=== PATIENT | male | born 1995 | race Caucasian/White ===

== ENCOUNTER 2018-07-17 07:32 | Outpatient (CLI) | payer BC, SELFPAY ==
[2018-07-17 08:01] LABS: Abs Immature Grans 0.01 k/cumm (0.0-0.09); Absolute Basophil Count 0.02 k/cumm (0.0-0.2); Absolute Eosinophil Count 0.14 k/cumm (0.0-0.7); Absolute Lymphocyte Count 3.08 k/cumm (1.2-3.4); Absolute Monocyte Count 0.45 k/cumm (0.11-0.7); Absolute Neutrophil Count 2.63 k/cumm (1.2-6.7); Basophils % 0.3; Eosinophils % 2.2; HGB 15.9 g/dL (13.5-17.5); Immature Grans % 0.2; Lymphocytes % 48.7; Mean Corp. HGB Concentration 35.3 g/dL (32.0-36.0); Mean Corpuscular Hemoglobin 31.3 pg (27.0-33.0); Mean Corpuscular Volume 88.6 fL (80-95); Mean Platelet Volume 9.3 fL (8.0-11.0); Monocytes % 7.1; Neutrophils % 41.5; Platelet Count 240 x1000/uL (130-400); RBC 5.08 m/cumm (4.50-6.00); RBC Distribution Width 11.7 % (11.8-14.1); White Blood Cell Count 6.33 k/cumm (4.4-10.8)
[2018-07-17 08:46] LABS: Bilirubin Negative (Negative); Blood Negative (Negative); Clarity Clear; Glucose Negative (Negative); Ketones Negative (Negative); Leukocyte Esterase Negative (Negative); Nitrite Negative (Negative); Specific Gravity 1.025 (1.005-1.025); Urobilinogen 0.2 EU/dL (Up TO 0.2)
[2018-07-17 10:46] LABS: ALT 21 U/L (12-78); AST 24 U/L (15-37); Alkaline Phosphatase 76 U/L (46-116); Anion Gap 6.5 mmol/L (3-11); BUN 14 mg/dL (7-18); Bilirubin, Total 0.8 mg/dL (0.2-1.0); CO2 33.5 mmol/L (21.0-32.0); CREATININE 1.11 mg/dL (0.70-1.30); Calcium 9.3 mg/dL (8.5-10.1); Chloride 102 mmol/L (98-107); Cholesterol 194 mg/dL (50-200); Glucose 89 mg/dL (70-100); HDL Cholesterol 82 mg/dL (40-60); LDL CHOLESTEROL 103 mg/dL (<100); Potassium 4.1 mmol/L (3.5-5.1); Sodium 142 mmol/L (136-145); TSH (W/Ref FT4) 2.03 uIU/mL (0.358-3.74); Total Protein 7.7 g/dL (6.4-8.2); Triglyceride 36 mg/dL (30-150)
== END 2018-07-17 07:52 ==
PROVIDERS: PCP Family Medicine; Visit Provider Family Medicine
DX: Z00.00 Encounter for general adult medical examination without abnormal findings (principal); R11.0 Nausea; R39.11 Hesitancy of micturition; Z83.42 Family history of familial hypercholesterolemia
CPT/HCPCS: 36415; 80053; 80061; 83721; 81003; 84443; 85025

== ENCOUNTER 2019-08-08 03:38 | Emergency (ER) | payer BC, SELFPAY ==
[2019-08-08 03:44] VITALS: BP 130/84; PULSE 111; RESP 15; TEMP 36.6; O2SAT 100
--- NOTE | 2019-08-08 03:52 | ED.GENADUL_ITS ---
Discharge Plan Disposition Patient Disposition: HOME Condition: Stable Discharge Details Chief Complaint: Nausea/Vomit/Diar Clinical Impression: Nausea & vomiting Primary Care Provider: Geraldo Carrera ED Provider: Stiven Turcios Home Meds and New Rx's Prescriptions: New ondansetron 4 mg tablet,disintegrating 4 mg PO Q8H PRN (Reason: nausea and vomiting) Qty: 30 RF: 0 Discharge Instructions Instructions: Acute Nausea and Vomiting (ED) Additional Instructions: drink small amounts of fluids frequently to stay hydrated if still symptomatic Saturday follow up with your primary care provider if persistent vomit despite zofran, severe abdominal pain return to the emergency department Medical Decision Making 23 yo male who denies history of any significant medical problems, alcohol use or drug use comes in with complaints of n/v starting around 10pm last night. He denies any known fevers or recent travel. He has not had any severe or sharp abdominal pain but has had intermittent abdominal cramping sensations. He states he feels like he passed out during one episode of vomit that he had. He arrives HD stable with sinus tachycardia rate in the 110's on arrival, afebirle with stable BP. He is having intermittent periods of dry heaving on exam. He has a soft nontender abdomen. I suspect he has a gastroenteritis vs food illness. Given lack of abdominal tenderness do not suspect surgical pathology such as sbo, appendicitis or cholecystitis and do not feel ct imaging indicated. Will treat with ivf and zofran and evaluate for pancreatitis, hepatitis and electrolyte abnormalities. labs show no significant abnormalities and he feels better after compazine and zofrna and is tolerating PO, HR now in the 80's and no abdominal pain and no tenderness on exam. Suspect gastroenteritis vs food illness. ADvised to drink fluids and bland diet today and if not better by Saturday to see pcp and return precautions given Differential Diagnosis Differential Diagnosis: gastroenteritis, food illness, pancreatitis Lab Data Lab results reviewed: Yes I reviewed the patient's lab results. HPI General Mode of arrival: ambulatory . Date/Time Provider Initiated Documentation: 08/08/19 03:39 . Limitations to Documentation: no limitations . Information obtained by: patient . History of Present Illness 23 year old M presents to the emergency department with the chief complaint of nausea and vomit, described as moderate, Patient started experiencing this hour(s) (3) and it has been intermittent. No relieving factors improve symptom(s), No exacerbating factors reported . Patient did receive the following treatments prior to arrival, none Related Data Home Medications Medication Instructions Recorded Confirmed ondansetron 4 mg PO Q8H PRN #30 tab 08/08/19 Previous Rx's Medication Instructions Recorded ondansetron 4 mg PO Q8H PRN #30 tab 08/08/19 Allergies Allergy/AdvReac Type Severity Reaction Status Date / Time No Known Allergies Allergy Unverified 07/14/18 09:19 General Stated Complaint: Nausea/Vomit/Diar KATY: 3 Review of Systems All systems reviewed & are unremarkable except as noted in HPI and below Constitutional Constitutional: Denies chills, Denies fever(s) and Denies weakness Cardiovascular Cardiovascular: Denies chest pain and Denies dyspnea Respiratory Respiratory: Denies cough and Denies dyspnea Musculoskeletal Musculoskeletal: Denies joint swelling Neurologic Neurologic: Denies weakness Psychiatric Psychiatric: Denies depression PFSH Medical History (Updated 08/08/19 @ 04:58 by Stiven Turcios MD) Concussion Family History (Updated 07/15/18 @ 08:08 by Elton Lieberman) Father Hyperlipidemia Hypertension Brother No problems noted. Social History (Updated 07/15/18 @ 08:14 by Elton Lieberman) Smoking/Tobacco Use Status: Former Tobacco Use Quit Date: 06/17/17 Alcohol Intake: never Drug use: Never Substance use type: does not use Adopted: No Household members: significant other Pets and animals: Yes Pets and animals: cat(s) Sexually active: Yes What is your relationship status?: living with partner How often do you talk on the phone with friends or family?: once per week How often do you get together with friends or relatives?: once per week Do you belong to any clubs or organized social groups?: no Panel score (0-1 are the most socially isolated patients): 1 Duration: 30-45 minutes/day Frequency: 5-6 times per week Do you feel safe at home: Yes Exam Const General: no acute distress Orientation: alert HENMT Head: normal to inspection Ears: external ears normal General nose exam: external nose normal Mouth: moist mucous membranes Eyes General: appearance normal, both eyes and all related structures Neck Neck: normal visual inspection Resp Effort & Inspection: normal respiratory effort and able to speak in complete sentences Cardio Rate: regular rate GI Palpation: soft and nontender Skin General skin exam: no rashes or lesions noted Neuro General: alert and oriented x3 Extrem General: normal to inspection Psych Mental Status: mental status grossly normal Course Vital Signs Vital signs: Vital Signs Temperature 36.6 C 08/08/19 03:44 Pulse 111 H 08/08/19 03:44 Respiratory Rate 15 08/08/19 03:44 Blood Pressure 130/84 08/08/19 03:44 Pulse Oximetry 100 08/08/19 03:44 Temperature 36.6 C 08/08/19 03:44 Temperature Source Skin 08/08/19 03:44 Pulse 111 H 08/08/19 03:44 Respiratory Rate 15 08/08/19 03:44 Blood Pressure 130/84 08/08/19 03:44 Pulse Oximetry 100 08/08/19 03:44 Oxygen Delivery Method Room Air 08/08/19 03:44 Oxygen Flow Rate 0 08/08/19 03:44 Pain Level 3 08/08/19 03:44
[2019-08-08] MEDS: Normal Saline 1,000 ML 1000 ML IV (03:54)
[2019-08-08] MEDS: Ondansetron 4 MG/2 ML VIAL IVP (03:55)
[2019-08-08 04:05] LABS: Abs Immature Grans 0.04 k/cumm (0.0-0.09); Absolute Basophil Count 0.02 k/cumm (0.0-0.2); Absolute Eosinophil Count 0.05 k/cumm (0.0-0.7); Basophils % 0.1; Eosinophils % 0.3; Immature Grans % 0.2 %; Lymphocytes % 9.5; Monocytes % 7.9; RBC Distribution Width 11.6 % (11.8-14.1)
[2019-08-08 04:19] LABS: ALT 28 U/L (16-63); AST 27 U/L (15-37); Albumin 4.8 g/dL (3.4-5.0); Alkaline Phosphatase 77 U/L (46-116); Anion Gap 13.4 mmol/L (3-11); BUN 20 mg/dL (7-18); Bilirubin, Total 1.6 mg/dL (0.2-1.0); CO2 26.6 mmol/L (21.0-32.0); CREATININE 1.38 mg/dL (0.70-1.30); Calcium 9.6 mg/dL (8.5-10.1); Chloride 100 mmol/L (98-107); Glucose 125 mg/dL (74-106); Lipase 89 U/L (73-393); Magnesium 1.5 mg/dL (1.8-2.4); Potassium 4.2 mmol/L (3.5-5.1); Sodium 140 mmol/L (136-145); Total Protein 8.6 g/dL (6.4-8.2)
[2019-08-08 04:32] LABS: Absolute Lymphocyte Count 1.46 k/cumm (1.2-3.4); Absolute Monocyte Count 1.21 k/cumm (0.11-0.7); Absolute Neutrophil Count 12.57 k/cumm (1.2-6.7); HCT 50.1 % (40.0-50.0); HGB 18.1 g/dL (13.5-17.5); Mean Corp. HGB Concentration 36.1 g/dL (32.0-36.0); Mean Corpuscular Hemoglobin 30.8 pg (27.0-33.0); Mean Corpuscular Volume 85.3 fL (80-95); Mean Platelet Volume 9.4 fL (8.0-11.0); Platelet Count 298 x1000/uL (130-400); RBC 5.87 m/cumm (4.50-6.00); White Blood Cell Count 15.33 k/cumm (4.4-10.8)
[2019-08-08 04:53] VITALS: PULSE 97; RESP 16; O2SAT 96
[2019-08-08] MEDS: Prochlorperazine 10 MG/2 ML VIAL IVP (05:08)
[2019-08-08 05:15] VITALS: PULSE 102; RESP 12; O2SAT 97
[2019-08-08 05:26] VITALS: BP 108/64; PULSE 91; PULSE 94; RESP 17; O2SAT 94
[2019-08-08] MEDS: Ondansetron O.D.T. 4 MG TABEF, 3 TABS/BTL PO (05:48)
[2019-08-08 05:50] VITALS: BP 108/64; PULSE 91; RESP 17
== END 2019-08-08 05:50 | disposition home or self-care (01) ==
PROVIDERS: Emergency Provider Emergency Medicine; PCP Family Medicine
DX: R11.2 Nausea with vomiting, unspecified (principal)
CPT/HCPCS: 36415; 80053; 83690; 96361; 96374; 96375; 99284; 83735; 85025; J0780; J2405

== ENCOUNTER 2019-11-24 07:39 | Outpatient (CLI) | payer BC, SELFPAY ==
[2019-11-25 23:37] LABS: COVID-19 RT-PCR Result NEGATIVE (Negative)
== END 2019-11-24 07:59 ==
PROVIDERS: PCP Family Medicine; Visit Provider Family Medicine
DX: R05 Cough (principal); R50.9 Fever, unspecified
CPT/HCPCS: U0003

== ENCOUNTER 2020-05-05 02:55 | Outpatient (CLI) | payer BC, SELFPAY ==
[2020-05-08 12:40] LABS: Patient Race White; SARS-CoV-2 RNA Undetected (Undetected); SARS-CoV-2 Specimen Source Nasal
== END 2020-05-05 03:15 ==
PROVIDERS: PCP Family Medicine; Visit Provider Family Medicine
DX: Z11.59 Encounter for screening for other viral diseases (principal)
CPT/HCPCS: U0003

== ENCOUNTER 2020-12-06 03:11 | Outpatient (CLI) | payer BC, SELFPAY ==
[2020-12-06 13:42] LABS: Anion Gap 9.4 mmol/L (3-11); BUN 14 mg/dL (7-18); CO2 29.6 mmol/L (21.0-32.0); CREATININE 1.3 mg/dL (0.70-1.30); Chloride 104 mmol/L (98-107); Glucose 80 mg/dL (74-106); Potassium 4.3 mmol/L (3.5-5.1); Sodium 143 mmol/L (136-145)
[2020-12-06 22:20] LABS: Osmolality, Urine 870 mOsm/kg (150-1,150)
== END 2020-12-06 03:12 | disposition home or self-care (01) ==
LOC: LBO 03:11
PROVIDERS: PCP Nurse Practitioner Family; Visit Provider Nurse Practitioner Family
DX: R35.8 Other polyuria (principal)
CPT/HCPCS: 36415; 80048; 83935

== ENCOUNTER 2020-12-14 19:53 | Outpatient (REF) | payer BC, SELFPAY ==
[2020-12-14 22:32] LABS: Osmolality, Urine 426 mOsm/kg (150-1,150)
== END 2020-12-14 19:54 | disposition home or self-care (01) ==
LOC: LBN 19:53
PROVIDERS: PCP Nurse Practitioner Family; Visit Provider Nurse Practitioner Family
DX: R73.09 Other abnormal glucose (principal)
CPT/HCPCS: 83935

== ENCOUNTER → 2023-05-24 00:40 | Outpatient (CLI) | payer BC, SELFPAY ==
--- NOTE | 2023-05-24 09:00 | DI.RAD_ITS ---
Exam(s) XR SHOULDER LT COMPLETE 2+V EXAM: XR SHOULDER LT COMPLETE 2+V CLINICAL HISTORY: Failed PT/Insurance requests, LT SHOULDER PAIN, M25.512. TECHNIQUE: 2D digital imaging was performed. COMPARISON: No exams were available for comparison FINDINGS: Five views. No evidence of fracture or dislocation nor abnormal soft tissue calcifications. The subacromial spac e is not diminished. There are no degenerative changes in the glenohumeral and AC joints. Clavicle appears unremarkable. Density normal.. No osseous lesions. IMPRESSION: No significant radiographic findings in the DATA REPOSITORY: RADIATION DOSE DELIVERED:
== END ==
PROVIDERS: PCP Nurse Practitioner Family; Visit Provider Nurse Practitioner Family
DX: M25.512 Pain in left shoulder (principal)
CPT/HCPCS: 73030

== ENCOUNTER → 2023-06-19 02:09 | Outpatient (CLI) | payer BC, SELFPAY ==
--- NOTE | 2023-06-19 07:00 | DI.MRI_ITS ---
Exam(s) MR UPPER JOINT LT WO EXAM: MR UPPER JOINT LT WO CLINICAL HISTORY: Failed PT,lt shoulder pain,m25.512. TECHNIQUE: Multiplanar multisequence MRI was performed. COMPARISON: Plain films 24 May 2023 FINDINGS: BONES: There is no fracture or contusion pattern. JOINTS:The acromioclavicular joint is normal. The glenohumeral joint is normal. TENDONS: Supraspinatus: Unremarkable. Infraspinatus: Unremarkable. Subscapularis: Unremarkable. [place]: Unremarkable. Biceps and [place]: Unremarkable. MUSCLES: Unremarkable. GLENOID LABRUM: Unremarkable on this noncontrast examination. SOFT TISSUES: Unremarkable. OTHER: Subacromial and subdeltoid bursae . IMPRESSION: Unremarkable MRI of the shoulder. DATA REPOSITORY:
== END ==
PROVIDERS: PCP Nurse Practitioner Family; Visit Provider Nurse Practitioner Family
DX: G89.29 Other chronic pain (principal); M25.512 Pain in left shoulder
CPT/HCPCS: 73221

== ENCOUNTER 2023-10-23 14:32 | Outpatient (CLI) | payer BC, SELFPAY ==
[2023-10-23 15:01] VITALS: BP 128/73; PULSE 75; RESP 20; TEMP 37.1; O2SAT 97
[2023-10-23 15:39] VITALS: PULSE 81; O2SAT 98
[2023-10-23] MEDS: Lidocaine 2% Pres-Free 5 ML VIAL IJ (15:40)
[2023-10-23] MEDS: Nerve Block Tray 1 EACH MC (15:40)
[2023-10-23] MEDS: methylPREDNISolone ACETATE 40 MG/ML VIAL IJ (15:40)
--- NOTE | 2023-10-23 15:40 | PDOC.PAIN_ITS ---
Date of service: 10/23/23 Time of Service: 15:40 US Guided Injections Type of Ultrasound Guided Injection: Left Scapulothoracic Bursa Injection Pre-Procedural Evaluation Pain at the left scapulothoracic bursa Referral Patient has been referred to the [facility] for Left Scapulothoracic Bursa Injection for a chief complaint of left shoulderblade area pain Pre-Procedural Pain Score Pre-procedural pain score: 6/10 Reason for Exam Pain in the left scapulothoracic area Patient Interview Patient was interviewed and medical record reviewed: Yes There were no contraindications to performing an US guided procedure. Risks,expected side effects, potential benefits were reviewed. The patient consent form was signed and witnessed. Standard time out procedure was performed. Patient Safety No skin issues over the are to be injected Procedure Description No sedation given for procedure Patient was placed in the prone position and the following Pulse Ox applied. Pre-Procedure ultrasound scanning performed using a Linear 9 MHz probe Site Preparation Chloroprep Local Anesthesia Skin and subcutaneous tissues anesthetized with: 3 mL of Lidocaine 2%. A 21 G 3.5 Pajunk ultrasound needle was placed under live US guidance using an in-plane approach to the target area. After visualization of the needle tip at the target area Depo-Medrol 40mg per cc were used. Total of Injectate/Medication Note: 1 cc Negative aspiration for blood. [place] were removed without difficulty. Ultrasound images were captured and stored. Patient Mental Status Patient was alert during procedure Vital Signs Vital signs were stable throughout the procedure and recorded by nursing. Follow Up/Discharge Follow up plans and appointments were discussed with patient. Post procedure instruction was given as documented in nursing documentation. Discharge criteria met and patient discharged from [facility] Management Center: Yes Post Procedure Pain Post Procedure Pain: 2/10 Patient tolerated procedure well Procedure Outcome: Successful Bursa Injection (left scapulothoracic) Non US Guided Injections Procedure Description Patient was placed in the prone position Post Procedure Pain Post Procedure Pain: 2/10
== END 2023-10-23 14:33 | disposition home or self-care (01) ==
LOC: PC 14:32
PROVIDERS: PCP Nurse Practitioner Family; Visit Provider Preventive Medicine Occupational Medicine
DX: M75.52 Bursitis of left shoulder (principal)
CPT/HCPCS: 20610; J1010

== ENCOUNTER 2023-12-02 05:58 | Outpatient (CLI) | payer BC, SELFPAY ==
[2023-12-02 08:44] LABS: HCT 41.6 % (40.0-50.0); HGB 14.9 g/dL (13.5-17.5)
[2023-12-02 09:10] LABS: Calculated LDL 149 mg/dL (<100); Cholesterol 219 mg/dL (<200); Glucose 96 mg/dL (74-106); HDL Cholesterol 63 mg/dL (40-60); Triglyceride 37 mg/dL (<150)
[2023-12-03 12:08] LABS: Hemoglobin S Screen Negative (Negative)
[2023-12-04 12:20] LABS: G6PD Enzyme Activity 9.4 U/g Hb (8.0 - 11.9)
[2023-12-05 13:36] LABS: HIV 1 RNA Qualitative Undetected copies/mL (Undetected)
== END 2023-12-02 05:59 | disposition home or self-care (01) ==
PROVIDERS: PCP Nurse Practitioner Family; Visit Provider Nurse Practitioner Family
DX: Z00.00 Encounter for general adult medical examination without abnormal findings (principal)
CPT/HCPCS: 36415; 80061; 82947; 82955; 87536; 85014; 85018; 85660

== ENCOUNTER 2024-02-28 00:35 | Outpatient (CLI) | payer BC, SELFPAY ==
--- OUTSIDE RECORDS SUMMARY | 2024-02-28 00:56 | XMS_ITS | Referral Summary ---
Author Organization [facility] Address [address] [place] [address] Care Team Providers Care Master Fisher Name Role Phone Unavailable Primary Care Provider Unavailabl e Encounters Date Type Department Care Team Description 12/02/2023 Lab Requisition [facility] Pathology & Laboratory Medicine - [facility] [address] [place] [address] Outr Resulting Lab, Provider from Last 3 Months Social History Tobacco Use Types Packs/Day Years Used Date Smoking Tobacco: Never Assessed Interpersonal Safety Answer Date Record ed Physically Hurt Never 05/10/2020 Verbally Threaten Not on file 05/10/2020 Sex and Gender Information Value Date Recorded Sex Assigned at Not on file Gender Identity Not on file Sexual Orientation Not on file Plan of Treatment Not on file Procedures Procedure Name Priority Date/Time Associated Diagnosis Comments HIV 1 RNA QUANTITATION Routine 12/02/2023 8:35 EDT HEMOGLOBIN S SCREEN Routine 12/02/2023 8 :35 EDT from Last 3 Months Results * HIV 1 RNA QUANTITATION (12/02/2023 8:35 EDT) HIV RNA Detection, Qual Undetected Undetected copies/mL 12/05/2023 13:31 EDT [facility] Blood VENOUS BLOOD / Unknown 12/02/2023 8:35 EDT 12/02/2023 16:41 EDT Narrative [facility] - 12/05/2023 13:31 EDT The quantification range of this assay is 20 IU/mL to 10,000,000 IU/mL. ??Testing was performed using the Loi HIV test ([employer] with the loi [id number] System. Provider Outr Resulting Lab CHEMISTRY & BLOOD GAS ORDERABLES Performing Organization Address City/State/[facility] Co de Phone Number [facility] [address] [place] [address] * HEMOGLOBIN S SCREEN (12/02/2023 8:35 EDT) Sickle Cell Prep Negative Negative 12/03/2023 12:03 EDT [facility] Blood VENOUS BLOOD / Unknown 12/02/2023 8:35 EDT 12/02/2023 22:07 EDT Provider Outr Resulting Lab HEMATOLOGY & PF4 ORDERABLES [facility] [address] [place] [address] from Last 3 Months
--- OUTSIDE RECORDS SUMMARY | 2024-02-28 00:56 | XMS_ITS | Encounter Summary ---
Author Organization [facility] Address [facility] [place] [address] Care Team Providers Care Lapping Machine Operator Name Role Phone Mejia Bowden APRN Primary Care Provider [phone]- [phone] Reason for Referral * Consultation (Routine) - Authorized Specialty Diagnoses / Procedures Referred By Skip ramon Referred To Contact Orthopaedics Diagnoses Scapulothoracic bursitis Jason Mejia MD [address] [place] [address] Johnson Luther MD [facility] [place] [address] Referral ID Status Reason Start Date Expiration Date Visits Requested Visits Authorized [id number] Authorized Consult, Test & Treat PCP Updated and/or Approved 07/01/2023 06/30/2024 6 6 Encounter Details Date Type Department Care Team (Latest Contact Info) Description 07/01/2023 Transcribe Orders eDH Incoming Referrals [phone] Jason Mejia MD [address] [place], [place] [id number] Scapulothoracic bursitis Social History Tobacco Use Types Packs/Day Years Used Date Smoking Tobacco: Never Assessed Sex and Gender Information Value Date Recorded Sex Assigned at Not on file Gender Identity Not on file Sexual Orientation Not on file documented as of this encounter Plan of Treatment Upcoming Encounters Date Type Department Care Team (Late st Contact Info) Description 04/13/2024 11:00 AM EDT [place] [phone] Johnson Luther MD [facility] [place] [address] Scheduled Referrals Name Type Priority Associated Diagnoses Order Schedule Referral to Orthopaedics Outpatient Referral Routine Scapulothoracic bursitis Ordered: 07/01/2023 documented as of this encounter Visit Diagnoses Diagnosis Scapulothoracic bursitis documented in this encounter Care Teams Lapping Machine Operator Relationship Specialty Start Date End Date Mejia Bowden, [employer] [address] [place] [address] PCP - General Family Medicine 07/01/23 documented as of this encounter
--- OUTSIDE RECORDS SUMMARY | 2024-02-28 00:56 | XMS_ITS | Encounter Summary ---
[place] [address] Care Team Providers Care Photographer Model Name Role Phone Mejia Bowden APRN Primary Care Provider [phone]- [phone] Reason for Referral * Consultation (Routine) - Closed Specialty Diagnoses / Procedures Referred By Skip ramon Referred To Contact Orthopaedics Diagnoses Periscapular pain Jason Mejia MD [address] [place] [address] [facility] [address] [place] [id number] Referral ID Status Reason Start Date Expiration Date V isits Requested Visits Authorized [id number] Closed Consult, Test & Treat PCP Updated and/or Approved 12/03/2023 12/02/2024 6 6 Encounter Details Date Type Department Care Team (Late st Contact Info) Description 12/03/2023 Transcribe Orders eDH Incoming Referrals [phone] Jason Mejia MD [address] [place], [place] [id number] Periscapular pain Social History Tobacco Use Types Packs/Day Years Used Date Smoking Tobacco: Former Cigarettes Smokeless Tobacco: Never Sex and Gender Information Value Date Recorded Sex Assigned at Not on file Gender Identity Not on file Sexual Orientation Not on file documented as of this encounter Plan of Treatment Upcoming Encounters Date Type Department Care Team (Late st Contact Info) Description 04/13/2024 11:00 AM EDT [place] [phone] Johnson Luther MD [facility] [place] [address] Scheduled Referrals Name Type Priority Associated Diagnoses Order Schedule Referral to Orthopaedics Outpatient Referral Routine Periscapular pain Ordered: 12/03/2023 documented as of this encounter Visit Diagnoses Diagnosis Periscapular pain Disorder of bone and cartilage, unspecified documented in this encounter Care Teams Photographer Model Relationship Specialty Start Date End Date Mejia Bowden APRN [address] [place] [address] PCP - General Family Medicine 07/01/23 documented as of this encounter
--- OUTSIDE RECORDS SUMMARY | 2024-02-28 00:56 | XMS_ITS | Encounter Summary ---
Author Organization [facility] Address [facility] [place] [address] Care Team Providers Care Goring Cutter Name Role Phone Mejia Bowden APRN Primary Care Provider [phone] Reason for Visit * Reason Comments Establish Care LEFT SCAPULOTHORACIC BURSITIS ? INJECTION * Consultation (Routine) - Authorized Specialty Diagnoses / Procedures Referred By Skip ramon Referred To Contact Orthopaedics Diagnoses Scapulothoracic bursitis Jason Mejia MD [address] [place] [address] Arash Rasmussen MD [facility] [place] [address] Referral ID Status Reason Start Date Expiration Date Visits Requested Visits Authorized [id number] Authorized Consult, Test & Treat PCP Updated and/or Approved 07/01/2023 06/30/2024 6 6 Encounter Details Date Type Department Care Team (Latest Contact Info) Description 07/11/2023 3:40 PM EST Office [place] [address] Arash Rasmussen MD [facility] [place] [address] Scapulothoracic bursitis of left shoulder; Chronic periscapular pain on left side; Myofascial pain Social History Tobacco Use Types Packs/Day Years Used Date Smoking Tobacco: Former Cigarettes Smokeless Tobacco: Never Tobacco Cessation:Counseling Given: Not Answered Sex and Gender Information Value Date Recorded Sex Assigned at Not on file Gender Identity Not on file Sexual Orientation Not on file documented as of this encounter Last Filed Vital Signs Vital Sign Reading Time Taken Comments Blood Pressure - - Pulse - - Temperature - - Respiratory Rate - - Oxygen Saturation - - Inhaled Oxygen Concentration - - Weight 70.3 kg (155 lb) 07/11/2023 3:41 PM EST Height 170.2 cm (5' 7) 07/11/2023 3:41 PM EST Body Mass Index 24.28 07/11/2023 3:41 PM EST documented in this encounter Progress Notes * Arash Rasmussen MD - 07/11/2023 3:40 PM EST [facility] NEW VISIT NOTE CC: Establish Care (LEFT SCAPULOTHORACIC BURSITIS ? INJECTION) HPI: The patient is a 27 y.o. male who presents with Establish Care (LEFT SCAPULOTHORACIC BURSITIS ? INJECTION) Patient presents today with ongoing left posterior shoulder pain that is been going for 2 to 3 years. There is no specific inciting event. The patient notes that he had been doing some light weightlifting warm-up, when he started noticing the pain in the posterior aspect of the scapula. Today the pain is rated 4/10. He describes location as just medial to the border of the scapula, radiating up towards the trapezius into the neck, as well as down the lap. The pain is most focused just medial tothe medial border of the scapula. The pain today is described as achy, stiff and tight. The pain occurs constantly, is worse with standing and exercising, as well as wearing heavy pack at work. Improved with lying down. Patient denies any numbness, tingling, weakness focally. 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 The patient has tried physical therapy, which helps with some of his instability, however has not relieve the pain. 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 Relevant labs- BMI Readings from Last 2 Encounters: 07/11/23 24.28 kg/m?? No results found for: HA1C No results found for: INR, PT BP Readings from Last 3 Encounters: No data found for BP No results found for: WBC, HGB, HCT, MCV, PLATELET No results found for: CHLPL No results found for: HDL No results found for: LDLCHOL No results found for: TRIG No results found for: CHOLHDL Anticoagulation Antibiotics No active infections RADIOLOGY No new imaging. Physical Exam: Vitals: Ht 170.2 cm (5' 7) Wt 70.3 kg (155 lb) BMI 24.28 kg/m?? - Gen: Alert and following commands, no acute distress - CV: pulses 2+ and equal - Skin: Intact skin, non-erythematous, no rashes or breakdown appreciated MSK At the left Shoulder Exam Inspection: Normal muscle bulk and tone No atrophy No deformity No effusion noted Palpation- No TTP at the subacromial space No TTP at the biceps tendon long head No TTP at the coracoid process No TTP at the ACJ TTP at the periscapular muscles ROM (degrees): - Abduction: 170 - External rotation: 45 - Internal rotation: 45 - Scapular dyskinesis: mild winging of scapula BL Strength: (R/L) Abduction: 5/5 External rotation: 5/5 Internal rotation: 5/5 Special Tests: Impingement - Neer's: neg - Montoya: pain Rotator Cuff - Full can test- neg - Belly press- neg Labrum - [place]'s test- neg Biceps Tedon - Speed's test- neg AC Joint - Scarf test- neg Diagnostic Ultrasound pre-scan the patient's shoulder along the rhomboids, trapezius muscles and scapular muscles did notreveal any significant injury. PROCEDURE Ultrasound guided injection. Procedure injection location: periscapular muscles, in four locations within the rhomboids and trapezius Side: Left Indication: Pain and limited function Equipment: [employer] with 4-20 MHz linear transducer, 4-12 MHz linear transducer, 8-18MHz hockey stick and 1-5 MHz curvilinear probe for adequate depth. After discussion of the risks and potential benefits of the procedure, verbal informed consent was obtained. Justification for use of ultrasound guidance: The use of direct ultrasound visualization of the needle (rather than a non-guided injection) was required to increase patient safety by excluding inadvertent intramuscular or intratendinous placement and minimizing bleeding by avoiding osteochondral orvascular injury from the needle. Additionally, the increased accuracy of placement may increase clinical effectiveness and will allow higher diagnostic specificity when evaluating effectiveness of this injection. Location 1- inferior border of the scapula medially The injection location was confirmed by a prescan of the area. Following this, the area was cleanedin the usual sterile fashion with chlorhexidine. Subsequently a 25g 1.5in needle was advanced to the target under direct ultrasound visualization using an in-plane approach. Aspiration revealed no blo od. The injection was performed with solution volumes as below. Lidocaine 1% 0.1 ml Ropivicaine 0.5% 1 ml Methylprednisolone 40 mg/ml 0.25 ml The needle was removed. Hemostasis was achieved with direct pressure. There were no complications and the patient tolerated the procedure well. Post procedure instructions were provided. Location 2- mid border of the scapula medially The injection location was confirmed by a prescan of the area. Following this, the area was cleanedin the usual sterile fashion with chlorhexidine. Subsequently a 25g 1.5in needle was advanced to the target under direct ultrasound visualization using an in-plane approach. Aspiration revealed no blo od. The injection was performed with solution volumes as below. Lidocaine 1% 0.1 ml Ropivicaine 0.5% 1 ml Methylprednisolone 40 mg/ml 0.25 ml The needle was removed. Hemostasis was achieved with direct pressure. There were no complications and the patient tolerated the procedure well. Post procedure instructions were provided. Location 3- upper border of the scapula The injection location was confirmed by a prescan of the area. Following this, the area was cleanedin the usual sterile fashion with chlorhexidine. Subsequently a 25g 1.5in needle was advanced to the target under direct ultrasound visualization using an in-plane approach. Aspiration revealed no blo od. The injection was performed with solution volumes as below. Lidocaine 1% 1 ml Ropivicaine 0.5% 1 ml Methylprednisolone 40 mg/ml 0.25 ml The needle was removed. Hemostasis was achieved with direct pressure. There were no complications and the patient tolerated the procedure well. Post procedure instructions were provided. Location 4 mid-upper trapezius The injection location was confirmed by a prescan of the area. Following this, the area was cleanedin the usual sterile fashion with chlorhexidine. Subsequently a 25g 1.5in needle was advanced to the target under direct ultrasound visualization using an in-plane approach. Aspiration revealed no blo od. The injection was performed with solution volumes as below. Lidocaine 1% 1 ml Ropivicaine 0.5% 1 ml Methylprednisolone 40 mg/ml 0.25 ml The needle was removed. Hemostasis was achieved with direct pressure. There were no complications and the patient tolerated the procedure well. Post procedure instructions were provided. ASSESSMENT & PLAN Impression: chronic left posterior shoulder pain likely due to myofascial pain and scapula thoracic bursitis. In order to relieve the patient's pain given that he is not improved with conservative care, will provide him with trigger point injections around the medial border the scapula, and the trapezius today. Should this not relieve the patient's pain, we will consider other diagnoses, and can look furtherinto the cervical spine. Plan: - Therapeutic exercise: Continue PT exercises - Medications: No changes were made today.. Counseled regarding side effects and appropriate administration of medications as applicable. - Diagnostics: none - Injections: Discussed the risks of a potential soft tissue injection, including bleeding, infection, transient blood sugar elevation, skin depigmentation, and the possibility of weakening tissue over time. Ultrasound guided injection provided today to the periscapular muscles - Medical Decision Making: Discussed surgical and non-surgical options. Detailed the patient's condition, prognosis, further work-up and treatment options. Activity modification was discussed. Answered all of the patient's questions. - F/U - as needed for re-evaluation to ensure we have the appropriate diagnosis and treatment is working. Consider re-evaluation for other possible diagnosis. Return sooner if needed, advised to call with any questions or concerns in the interim. Arash Rasmussen MD Sports Direct Casting OperatorMortgage Specialist of Orthopedics [facility] The note was created using dictation, please excuse any grammatical or word errors. documented in this encounter Miscellaneous Notes * Addendum Note - Arash Rasmussen MD - 07/11/2023 3:40 PM ESTAddended by: ARASH RASMUSSEN on: 07/11/2023 04:25 PM Modules accepted: Orders documented in this encounter Plan of Treatment Upcoming Encounters Date Type Department Care Team (Late st Contact Info) Description 04/13/2024 11:00 AM EDT Office [place] [address] Arash Rasmussen MD [facility] [address] [place] [address] documented as of this encounter Visit Diagnoses Diagnosis Scapulothoracic bursitis of left shoulder Chronic periscapular pain on left side Myofascial pain Mylagia and myositis, unspecified documented in this encounter Administered Medications Inactive Administered Medications - up to 3 most recent administrations Medication Order MAR Action Action Date Dose Rate Site lidocaine (pf) (Xylocaine) (10 mg/mL) 1% injection 30 mg 30 mg (3 mL), Subcutaneous, ONCE, 1 dose, On Isabell 07/11/23 at 1645, Routine Given 07/11/2023 4:25 PM EST 30 mg methylPREDNISolone sod succ (pf) (SOLU-Medrol) (40 mg/1 mL) injection 40 mg 40 mg, Intramuscular, ONCE, 1 dose, On Isabell 07/11/23 at 1645, Routine Given 07/11/2023 4:25 PM EST 40 mg ROpivacaine (PF) (Naropin) 0.5% (5 mg/mL) injection 20 mg 20 mg (4 mL), Epidural, ONCE, 1 dose, On Isabell 07/11/23 at 1645, Routine Given 07/11/2023 4:25 PM EST 20 mg documented in this encounter Care Teams Goring Cutter Relationship Specialty Start Date End Date Mejia Bowden APRN [address] [place] [address] [address] [place] [address] PCP - General Family Medicine 07/01/23 documented as of this encounter
--- OUTSIDE RECORDS SUMMARY | 2024-02-28 00:56 | XMS_ITS | Encounter Summary ---
Author Organization [facility] Address [address] [place] [address] Care Team Providers Care Belt Conveyor Drier Name Role Phone Unavailable Primary Care Provider Unavailabl e Encounter Details Date Type Department Care Team (Late st Contact Info) Description 12/02/2023 Lab Requisition [facility] Pathology & Laboratory Medicine - [facility] [address] [place] [address] Outr Resulting Lab, Provider Social History Tobacco Use Types Packs/Day Years Used Date Smoking Tobacco: Never Assessed Interpersonal Safety Answer Date Record ed Physically Hurt Never 05/10/2020 Verbally Threaten Not on file 05/10/2020 Sex and Gender Information Value Date Recorded Sex Assigned at Not on file Gender Identity Not on file Sexual Orientation Not on file documented as of this encounter Plan of Treatment Not on file documented as of this encounter Procedures Procedure Name Priority Date/Time Associated Diagnosis Comments HIV 1 RNA QUANTITATION Routine 12/02/2023 8:35 EDT HEMOGLOBIN S SCREEN Routine 12/02/2023 8 :35 EDT documented in this encounter Results * HIV 1 RNA QUANTITATION (12/02/2023 8:35 EDT) HIV RNA Detection, Qual Undetected Undetected copies/mL 12/05/2023 13:31 EDT [facility] Blood VENOUS BLOOD / Unknown 12/02/2023 8:35 EDT 12/02/2023 16:41 EDT Narrative [facility] - 12/05/2023 13:31 EDT The quantification range of this assay is 20 IU/mL to 10,000,000 IU/mL. ??Testing was performed using the Loi HIV test ([employer] with the loi [employer] System. Provider Outr Resulting Lab CHEMISTRY & BLOOD GAS ORDERABLES [facility] [address] [place] [address] * HEMOGLOBIN S SCREEN (12/02/2023 8:35 EDT) Sickle Cell Prep Negative Negative 12/03/2023 12:03 EDT [facility] Blood VENOUS BLOOD / Unknown 12/02/2023 8:35 EDT 12/02/2023 22:07 EDT Provider Outr Resulting Lab HEMATOLOGY & PF4 ORDERABLES Performing Organization Address City/[facility] Co de Phone Number [facility] [address] [place] [address] documented in this encounter Visit Diagnoses Not on filedocumented in this encounter
--- OUTSIDE RECORDS SUMMARY | 2024-02-28 00:56 | XMS_ITS | Encounter Summary ---
Author Organization [facility] Address [address] [place] [address] Care Team Providers Care Tank Tester Name Role Phone Unavailable Primary Care Provider Unavailabl e Encounter Details Date Type Department Care Team (Late st Contact Info) Description 12/14/2020 Lab Requisition [facility] Pathology & Laboratory Medicine - [facility] [address] [place] [address] Outr Resulting Lab, Provider Social History Tobacco [...] Procedure Name Priority Date/Time Associated Diagnosis Comments OSMOLALITY, URINE Routine 12/14/2020 9:30 EDT documented in this encounter Results * OSMOLALITY, URINE (12/14/2020 9:30 EDT) Osmolality, Urine 426 150-1,150 mOsm/kg 12/14/2020 22:26 EDT [facility] Urine URINE SPECIMEN COLLECTION, CLEAN CATCH / Unknown 12/14/2020 9:30 EDT 12/14/2020 20:41 EDT Provider Outr Resulting Lab URINALYSIS O RDERABLES [facility] [address] [place] [address] documented in this encounter Visit Diagnoses Not on filedocumented in this encounter
--- OUTSIDE RECORDS SUMMARY | 2024-02-28 00:56 | XMS_ITS | Encounter Summary ---
Author Organization [facility] [place] [address] Care Team Providers Care Social Economist Name Role Phone Mario Briones MD, Nish Primary Care Provider [phone] Encounter Details Date Type Department Care Team (Late st Contact Info) Description 06/19/2023 Ancillary Procedure [place] [address] Gualberto Mcbride MD [facility] [place] [address] Social History Tobacco Use Types Packs/Day Years [...] 11:00 AM EDT Office [place] [phone] Johnson Luther MD [facility] [place] [address] documented as of this encounter Procedures Procedure Name Priority Date/Time Associated Diagnosis Comments FILM LIBRARY STORAGE ONLY MR SHOULDER Routine 06/19/2023 12:00 AM EST documented in this encounter Results * Film Library- Storage Only MR Shoulder (06/19/2023 12:00 AM EST) Narrative [facility] - 06/25/2023 7:26 PM EST This exam is auto-finalizing. It's purpose is for storage only. Gualberto Mcbride MD IMG FILM LIBRARY ORD ERABLES [facility] [place], [place] documented in this encounter Visit Diagnoses Not on filedocumented in this encounter Care Teams Social Economist Relationship Specialty Start Date End Date Nish Martin MD [address] [place] [id number] PCP - General 05/09/10 06/30/23 documented as of this encounter
--- OUTSIDE RECORDS SUMMARY | 2024-02-28 00:56 | XMS_ITS | Encounter Summary ---
Author Organization [facility] [place] [address] Care Team Providers Care Resident Hall Director Name Role Phone Mejia Bowden APRN Primary Care Provider [phone] Encounter Details Date Type Department Care Team (Latest Contact Info) Description 07/11/2023 Travel Social History Tobacco Use Types Packs/Day Years [...] 11:00 AM EDT Office [place] [address] Johnson Luther MD [facility] [place] [address] documented as of this encounter Visit Diagnoses Not on filedocumented in this encounter Care Teams Resident Hall Director Relationship Specialty Start Date End Date Mejia Bowden APRN [address] [place], [place] [address] PCP - General Family Medicine 07/01/23 documented as of this encounter
--- OUTSIDE RECORDS SUMMARY | 2024-02-28 00:56 | XMS_ITS | Clinical Summary ---
Author Organization Formerly [facility] [place] [address] Care Team Providers Care Cut Out Worker Name Role Phone Mejia Bowden APRN Primary Care Provider +1- [phone] Allergies No known active allergies Medications No known medications Active Problems No known active problems Encounters Date Type Department Care Team Description 01/10/2024 12:05 PM EDT - 01/10/2024 11:59 PM EDT Hospital Encounter XRay at [address] [place] [address] Johnson Luther MD Scapulothoracic bursitis of left shoulder; Chronic periscapular pain on left side; Chronic pain in left shoulder Discharge Disposition: Home 01/10/2024 11:30 AM EDT Office Visit [facility] [place] [address] Johnson Luther MD Scapulothoracic bursitis of left shoulder; Chronic periscapular pain on left side; Chronic pain in left shoulder 01/10/2024 Travel 12/03/2023 Transcribe Orders eDH Incoming Referrals [phone] Jason Mejia MD Periscapular pain from Last 3 Months Social History Tobacco Use Types Packs/Day Years Used Date Smoking Tobacco: Former Cigarettes Smokeless Tobacco: Never Tobacco Cessation:Counseling Given: Not Answered Sex and Gender Information Value Date Recorded Sex Assigned at Not on file Gender Identity Not on file Sexual Orientation Not on file Last Filed Vital Signs Vital Sign Reading Time Taken Comments Blood Pressure - - Pulse - - Temperature - - Respiratory Rate - - Oxygen Saturation - - Inhaled Oxygen Concentration - - Weight 70.3 kg (155 lb) 07/11/2023 3:41 PM EST Height 170.2 cm (5' 7) 07/11/2023 3:41 PM EST Body Mass Index 24.28 07/11/2023 3:41 PM EST Plan of Treatment Upcoming Encounters Date Type Department Care Team (Late st Contact Info) Description 04/13/2024 11:00 AM EDT Office [place] [address] Johnson Luther MD [facility] [place] [address] Health Maintenance Due Date Last Done Comments HPV vaccine (1 - Male 3-dose series) 2012 HIV screen 11/14/2015 Hepatitis C Screening 11/14/2015 Hepatitis B vaccine (0-59 yrs) (1) 2016 Tdap adult 2016 Tetanus vaccine 2016 Covid-19 Vaccine ( - season) 2024 Influenza (Flu) vaccine (1 o f 1 - Influenza standard series) 02/16/2024 Procedures Procedure Name Priority Date/Time Associated Diagnosis Comments XR THORACIC SPINE 2 VIEWS Routine 01/10/2024 12:27 PM EDT Scapulothoracic bursitis of left shoulder Chronic periscapular pain on left side Chronic pain in left shoulder XR CERVICAL SPINE 4 OR 5 VIEWS Routine 01/10/2024 12:27 PM EDT Scapulothoracic bursitis of left shoulder Chronic periscapular pain on left side Chronic pain in left shoulder from Last 3 Months Results * XR Cervical Spine 4 or 5 Views (01/10/2024 12:27 PM EDT) Mobile-XL WORKSTATION ID [id number] [facility] Anatomical Region Laterality Modality L-spine N/A Digital Radiogra phy Impressions 01/11/2024 11:38 AM EDT Straightening of the normal lordosis which may be positional or spasm. No acute finding. Thank you for letting us participate in the care of this patient. ??If you are a health care provider and have any questions regarding this report, please contact the number below. ??For patients who have questions please contact the health care manager that requested your imaging first. ? Electronically signed by: Lucy Broussard MD, [facility] ([phone]), at 01/11/2024 11:38 AM Narrative 01/11/2024 11:38 AM EDT EXAMINATION: XR CERVICAL SPINE 4 OR 5 VIEWS CLINICAL HISTORY: shoulder pain from neck? please get AP, lat, flexion and extension M75.52, Bursitis of left shoulder - M25.512, Pain in left shoulder - G89.29, Other chronic pain - M25.512, Pain in left shoulder - G89.29, Other chronic pain TECHNIQUE: 4 views of the cervical spine COMPARISON: None FINDINGS: Straightening of the normal lordosis. Normal change in alignment with flexion and extension. No focal subluxation. No radiographic evidence of acute fracture or prevertebral soft tissue swelling. Vertebral bodies are normal. Disc intervals are normal. Posterior elements are unremarkable. Procedure Note Lucy Broussard MD - 01/11/2024 EXAMINATION: XR CERVICAL SPINE 4 OR 5 VIEWS CLINICAL HISTORY: shoulder pain from neck? please get AP, lat, flexionand extension M75.52, Bursitis of left shoulder - M25.512, Pain in left shoulder -G89.29, Other chronic pain - M25.512, Pain in left shoulder - G89.29, Otherchronic pain TECHNIQUE: 4 views of the cervical spine COMPARISON: None FINDINGS: Straightening of the normal lordosis. Normal change in alignment withflexion and extension. No focal subluxation. No radiographic evidence of acutefracture or prevertebral soft tissue swelling. Vertebral bodies are normal. Disc intervals are normal. Posterior elements are unremarkable. IMPRESSION Straightening of the normal lordosis which may be positional or spasm. Noacute finding. Thank you for letting us participate in the care of this patient. If youare a health care provider and have any questions regarding this report,please contact the number below. For patients who have questions please contactthe health care manager that requested your imaging first. Electronically signed by: Lucy Broussard MD, [facility]([phone]), at 01/11/2024 11:38 AM Johnson Luther MD IMG DX ORDERABLES * XR Thoracic Spine 2 views (01/10/2024 12:27 PM EDT) WORKSTATION ID [id number] RAD Anatomical Region Laterality Modality N/A Digital Radiogra phy Impressions 01/11/2024 10:57 AM EDT Normal exam. Thank you for letting us participate in the care of this patient. ??If you are a health care provider and have any questions regarding this report, please contact the number below. ??For patients who have questions please contact the health care manager that requested your imaging first. ? Electronically signed by: Lucy Broussard MD, [facility] ([phone]), at 01/11/2024 10:57 AM Narrative 01/11/2024 10:57 AM EDT EXAMINATION: XR THORACIC SPINE 2 VIEWS CLINICAL HISTORY: left scapular pain ? radiating thoracic M75.52, Bursitis of left shoulder - M25.512, Pain in left shoulder - G89.29, Other chronic pain - M25.512, Pain in left shoulder - G89.29, Other chronic pain TECHNIQUE: 3 views of the thoracic spine COMPARISON: None FINDINGS: Normal alignment. No evidence of acute fracture. Disc intervals are normal. Procedure Note Lucy Broussard MD - 01/11/2024 EXAMINATION: XR THORACIC SPINE 2 VIEWS CLINICAL HISTORY: left scapular pain ? radiating thoracic M75.52, Bursitis of left shoulder - M25.512, Pain in left shoulder -G89.29, Other chronic pain - M25.512, Pain in left shoulder - G89.29, Otherchronic pain TECHNIQUE: 3 views of the thoracic spine COMPARISON: None FINDINGS: Normal alignment. No evidence of acute fracture. Disc intervals arenormal. IMPRESSION Normal exam. Thank you for letting us participate in the care of this patient. If youare a health care provider and have any questions regarding this report,please contact the number below. For patients who have questions please contactthe health care manager that requested your imaging first. Johnson Luther MD IMG DX ORDERABLES from Last 3 Months Care Teams Cut Out Worker Relationship Specialty Start Date End Date Mejia Bowden APRN [address] [place], [place] [address] PCP - General Family Medicine 07/01/23
--- OUTSIDE RECORDS SUMMARY | 2024-02-28 00:56 | XMS_ITS | Encounter Summary ---
Author Organization [facility] Address [address] [place] [address] Care Team Providers Care Student Loan Counselor Name Role Phone Unavailable Primary Care Provider Unavailabl e Encounter Details Date Type Department Care Team (Late st Contact Info) Description 12/06/2020 Lab Requisition [facility] Pathology & Laboratory Medicine - [facility] [address] [place] [address] Outr Resulting Lab, Provider Social History Tobacco [...] Date/Time Associated Diagnosis Comments OSMOLALITY, URINE Routine 12/06/2020 12: 38 EDT documented in this encounter Results * OSMOLALITY, URINE (12/06/2020 12:38 EDT) Osmolality, Urine 870 150-1,150 mOsm/kg 12/06/2020 22:16 EDT [facility] Urine URINE SPECIMEN COLLECTION, CLEAN CATCH / Unknown 12/06/2020 12:38 EDT 12/06/2020 21:33 EDT Provider Outr Resulting Lab URINALYSIS O RDERABLES [facility] [address] [place] [address] documented in this encounter Visit Diagnoses Not on filedocumented in this encounter
--- OUTSIDE RECORDS SUMMARY | 2024-02-28 00:56 | XMS_ITS | Encounter Summary ---
Author Organization [facility] [place] [address] Care Team Providers Care Slurry Tank Operator Name Role Phone Mario Briones MD, Nish Primary Care Provider [phone] Encounter Details Date Type Department Care Team (Late st Contact Info) Description 05/24/2023 12:05 AM EST Ancillary Procedure [place] [address] Mejia Bowden, TELECOM COORDINATOR [address] [place] [address] Social History Tobacco Use Types Packs/Day Years [...] 11:00 AM EDT [place] [address] Johnson Luther MD [facility] [address] [place] [address] documented as of this encounter Procedures Procedure Name Priority Date/Time Associated Diagnosis Comments FILM LIBRARY STORAGE ONLY DX SHOULDER Routine 05/24/2023 12:05 AM EST documented in this encounter Results * Film Library- Storage Only DX Shoulder (05/24/2023 12:05 AM EST) Narrative SHANKAR - 11/20/2023 10:56 AM EDT This exam is auto-finalizing. It's purpose is for storage only. Mejia Bowden APRN IMG FILM LIBRARY O RDERABLES [place], [place] documented in this encounter Visit Diagnoses Not on filedocumented in this encounter Care Teams Slurry Tank Operator Relationship Specialty Start Date End Date Nish Martin [place] [address] PCP - General 05/09/10 06/30/23 documented as of this encounter
--- OUTSIDE RECORDS SUMMARY | 2024-02-28 00:56 | XMS_ITS | Encounter Summary ---
Author Organization [facility] Address [facility] [place] [address] Care Team Providers Care Yacht Builder Name Role Phone Mejia Bowden APRN Primary Care Provider [phone]- [phone] Reason for Visit * Reason Comments Follow-up NXR L SHOULDER CO NTINUED PAIN Encounter Details Date Type Department Care Team (Latest Contact Info) Description 01/10/2024 11:30 AM EDT [place] [address] Johnson Luther MD [facility] [address] [place] [address] Scapulothoracic bursitis of left shoulder; Chronic periscapular pain on left side; Chronic pain in left shoulder Social History Tobacco Use Types Packs/Day Years Used Date Smoking Tobacco: Former Cigarettes Smokeless Tobacco: Never Sex and Gender Information Value Date Recorded Sex Assigned at Not on file Gender Identity Not on file Sexual Orientation Not on file documented as of this encounter Progress Notes * Johnson Luther MD - 01/10/2024 11:30 AM EDT [facility] FOLLOW UP NOTE ID/Chief Complaint: Chief Complaint Patient presents with Follow-up NXR L SHOULDER CONTINUED PAIN Interval History: patient presents today with ongoing left periscapular shoulder pain, which began around four years ago without any specific inciting event. The patient notes that he currently has not gotten any relief from our previous corticosteroid injections and trigger point locations around his periscapular muscles where he has pain. Overall he is only had relief from a chiropractor gave him around one day worth of relief. Pain today is rated 5/10, and is limited his ability to exercise, sleep, do sports,daily activities and work. The patient is tried physical therapy, chiropractor, injections. Relevant labs- BMI Readings from Last 2 [...] for: TRIG No results found for: CHOLHDL Anticoagulant & Antiplatelet medications Antibiotics No active infections No new medical problems or surgeries since his last visit. No new allergies to medications Physical Examination: Vitals: There were no vitals taken for this visit. - Gen: Alert and following commands, no acute distress - CV: pulses 2+ and equal - Skin: Intact skin, non-erythematous, no rashes or breakdown appreciated Musculoskeletal: At the left Shoulder Exam Inspection: Normal muscle bulk and tone No atrophy No deformity No effusion noted Palpation- No TTP at the subacromial space No TTP at the biceps tendon long head No TTP at the coracoid process No TTP at the ACJ TTP at the periscapular muscles ROM (degrees): - Abduction: 170 - External rotation: 45 - Internal rotation: mid back - Scapular dyskinesis: neg Strength: (R/L) Abduction: 5/5 External rotation: 5/5 Internal rotation: 5/5 Special Tests: Impingement - Neer's: neg - Montoya: neg Rotator Cuff - Full can test- neg - Belly press- neg Labrum - [place]'s test- pos Biceps Tedon - Speed's test- neg AC Joint - Scarf test- neg Imaging: No new imaging. Diagnostic Ultrasound Pre-scan of the joint does not reveal effusion PROCEDURE Ultrasound guided injection. Procedure injection location: Glenohumeral joint Side: Left Indication: Pain and limited function Equipment: [employer] with 4-20 MHz linear transducer, 4-12 MHz linear transducer, 8-18MHz hockey stick and 1-5 MHz curvilinear probe for adequate depth. Informed Consent: Following denial of allergy and review of potential side effects and complications including, but not limited to, infection, bleeding, allergic reaction, local tissue breakdown, injury to soft tissue and/or nerves and seizure, the patient indicated understanding and verbal informed consent was obtained to proceed. Procedural pause conducted to verify: correct patient identity, procedure to be performed and, as applicable, correct side and site, correct patient position, availability of any special equipment orother special requirements. Justification for use of ultrasound guidance: The [...] specificity when evaluating effectiveness of this injection. The injection location was confirmed by a prescan of the area. Following this, the area was cleanedin the usual sterile fashion with chlorhexidine. Subsequently a 25g 1.5in needle was advanced to the target under direct ultrasound visualization using an in-plane approach. Aspiration revealed no blo od. The injection was performed with solution volumes as below. Lidocaine 1% 2 ml Triamcinolone 40 mg/ml 1ml The needle was removed. Hemostasis was achieved with direct pressure. There were no complications and the patient tolerated the procedure well. Post procedure instructions were provided. ASSESSMENT & PLAN Impression: chronic left periscapular shoulder pain without obvious cause. This patient had a lot of testing without any results, and recently had a nerve conduction study that did not provide any information either. The patient is very frustrated, as he would like to get in the and is trying to increase his training however has a lot of resulting pain around his thoracic and periscapular area. On examination the only thing that bothered him was doing and [place] test, and therefore it is possiblethe patient has some intra-articular shoulder pain that may be radiating out towards his periscapular area. Therefore we provided an injection into the glenohumeral joint to see if this reduces pain.The patient will evaluate the responsiveness and let us know if he has relief. Additionally the patient did have some discomfort with manipulation of the cervical spine, which we got an x-ray of the both the cervical and thoracic spine to see if there may be an abnormality here that has yet been detected. We also spoke to the patient about a possible medical problem that could cause radiating pain towards the periscapular area. Plan: - Therapeutic exercise: Encouraged the patient to maintain general aerobic activity for blood flow and strengthening for stability. - Medications: No changes were made today.. Counseled regarding side effects and appropriate administration of medications as applicable. - Diagnostics: x-ray of the cervical and thoracic spine. - Injections: Discussed the risks of a potential joint injection, including bleeding, infection, transient blood sugar elevation, the possibility of wearing out cartilage over time. Ultrasound guided injection provided today to the left shoulder - Medical Decision Making: Discussed surgical and non-surgical options. Detailed the patient's condition, prognosis, further work-up and treatment options. Activity modification was discussed. Answered all of the patient's questions. - F/U - for re-evaluation to ensure we have the appropriate diagnosis and treatment is optimized. Return sooner if needed, advised to call with any questions or concerns in the interim. Johnson Luther MD Sports Truss Driver HelperEngine Lathe Set Up Operator Tool of Orthopedics [facility] The note was created using dictation, please excuse any grammatical or word errors. documented in this encounter Plan of Treatment Upcoming Encounters Date Type Department Care Team (Late st Contact Info) Description 04/13/2024 11:00 AM EDT [place] [address] Johnson Luther MD [facility] DR [place] [address] documented as of this encounter Results * XR Thoracic Spine 2 views (01/10/2024 12:27 PM EDT) WORKSTATION ID [id number] RAD Anatomical Region Laterality Modality N/A Digital Radiogra phy Impressions 01/11/2024 10:57 AM EDT Normal exam. Thank you for letting us participate in the care of this patient. ??If you are a health care provider and have any questions regarding this report, please contact the number below. ??For patients who have questions please contact the health health care facilities inspector that requested your imaging first. ? Electronically signed by: Luyc Broussard MD, [facility] ([phone]), at 01/11/2024 10:57 AM Narrative 01/11/2024 10:57 [...] patients who have questions please contactthe health health care facilities inspector that requested your imaging first. Electronically signed by: Lucy Broussard MD, [facility]([phone]), at 01/11/2024 10:57 AM Johnson Luther MD IMG DX ORDERABLES * XR Cervical Spine 4 or 5 Views (01/10/2024 12:27 PM EDT) WORKSTATION ID [id number] RAD Anatomical Region Laterality Modality L-spine N/A Digital [...] who have questions please contact the health health care facilities inspector that requested your imaging first. ? Electronically signed by: Lucy Broussard MD, [facility] ([phone]), at 01/11/2024 11:38 AM Narrative 01/11/2024 11:38 [...] patients who have questions please contactthe health health care facilities inspector that requested your imaging first. Electronically signed by: Lucy Broussard MD, [facility]([phone]), at 01/11/2024 11:38 AM Johnson Luther MD IMG DX ORDERABLES documented in this encounter Visit Diagnoses Diagnosis Scapulothoracic bursitis of left shoulder Chronic periscapular pain on left side Chronic pain in left shoulder Pain in joint, shoulder region Scapulothoracic bursitis of left shoulder Chronic periscapular pain on left side Chronic pain in left shoulder Pain in joint, shoulder region documented in this encounter Administered Medications Inactive Administered Medications - up to 3 most recent administrations Medication Order MAR Action Action Date Dose Rate Site lidocaine (Xylocaine) 1% (10 mg/mL) injection 20 mg 20 mg, Intra-articular, ONCE, 1 dose, On Sat01/10/24 at 1215, Routine Given 01/10/2024 12:00 PM EDT 20 mg methylPREDNISolone sod succ (pf) (SOLU-Medrol) (40 mg/1 mL) injection 40 mg 40 mg, Intramuscular, ONCE, 1 dose, On Sat01/10/24 at 1215, Routine Given 01/10/2024 12:00 PM EDT 40 mg documented in this encounter Care Teams Yacht Builder Relationship Specialty Start Date End Date Mejia Bowden APRN [address] [place] [address] PCP - General Family Medicine 07/01/23 documented as of this encounter
--- OUTSIDE RECORDS SUMMARY | 2024-02-28 00:56 | XMS_ITS | Encounter Summary ---
Author Organization [facility] [place] [address] Care Team Providers Care Aerial Sprayer Name Role Phone Mejia Bowden APRN Primary Care Provider [phone] Encounter Details Date Type Department Care Team (Latest Contact Info) Description 01/10/2024 12:05 PM EDT - 01/10/2024 11:59 PM EDT Hospital Encounter XRay at [address] [place] [address] Johnson Luther MD [facility] [place] [address] Scapulothoracic bursitis of left shoulder; Chronic periscapular pain on left side; Chronic pain in left shoulder Discharge Disposition: Home Social History Tobacco Use Types Packs/Day Years [...] 11:00 AM EDT Office Visit Orthopaedics at [facility] [place] [address] Johnson Luther MD [facility] [place] [address] documented as of this encounter Procedures Procedure Name Priority Date/Time Associated Diagnosis Comments XR CERVICAL SPINE 4 OR 5 VIEWS Routine 01/10/2024 12:27 PM EDT Scapulothoracic bursitis of left shoulder Chronic periscapular pain on left side Chronic pain in left shoulder XR THORACIC SPINE 2 VIEWS Routine 01/10/2024 12:27 PM EDT Scapulothoracic bursitis of left shoulder Chronic periscapular pain on left side Chronic pain in left shoulder documented in this encounter Results * XR Thoracic Spine 2 views (01/10/2024 12:27 PM EDT) WORKSTATION ID [id number] RAD Anatomical Region Laterality Modality N/A Digital Radiogra phy Impressions 01/11/2024 10:57 AM EDT Normal exam. Thank you for letting us participate in the care of this patient. ??If you are a health care provider and have any questions regarding this report, please contact the number below. ??For patients who have questions please contact the health medicare specialist that requested your imaging first. ? Narrative 01/11/2024 10:57 AM EDT EXAMINATION: XR [...] patients who have questions please contactthe health medicare specialist that requested your imaging first. Johnson Luther MD IMG DX ORDERABLES * XR Cervical Spine 4 or 5 Views (01/10/2024 12:27 PM EDT) [employer] Signature WORKSTATION ID [id number] RAD Anatomical Region Laterality Modality L-spine N/A [...] who have questions please contact the health medicare specialist that requested your imaging first. ? Narrative 01/11/2024 11:38 AM EDT EXAMINATION: XR [...] patients who have questions please contactthe health medicare specialist that requested your imaging first. Johnson Luther MD IMG DX ORDERABLES documented in this encounter Visit Diagnoses Diagnosis Scapulothoracic bursitis of left shoulder Chronic periscapular pain on left side Chronic pain in left shoulder Pain in joint, shoulder region documented in this encounter Care Teams Aerial Sprayer Relationship Specialty Start Date End Date Mejia Bowden APRN [address] [facility] [address] [place] [address] PCP - General Family Medicine 07/01/23 documented as of this encounter
--- OUTSIDE RECORDS SUMMARY | 2024-02-28 00:56 | XMS_ITS | Clinical Summary ---
Author Organization [facility] Address [address] [place] [address] Care Team Providers Care Athletic Director Name Role Phone Unavailable Primary Care Provider Unavailabl e Encounters Date Type Department Care Team Description 12/02/2023 Lab Requisition [facility] Pathology & Laboratory Medicine - [facility] [address] [place] [address] Outr Resulting Lab, Provider from Last 3 Months Social History Tobacco Use Types Packs/Day Years Used Date Smoking Tobacco: Never Assessed Interpersonal Safety Answer Date Record ed Physically Hurt Never 05/10/2020 Verbally Threaten Not on file 05/10/2020 Sex and Gender Information Value Date Recorded Sex Assigned at Not on file Gender Identity Not on file Sexual Orientation Not on file Plan of Treatment Health Maintenance Due Date Last Done Comments Hepatitis C Screen 1997 Hepatitis B Vaccine (1 of 3 - 19+ 3-dose series) 11/13 COVID-19 Vaccine ( season) 2024 Procedures Procedure Name Priority Date/Time Associated Diagnosis Comments HIV 1 RNA QUANTITATION Routine 12/02/2023 8:35 EDT HEMOGLOBIN S SCREEN Routine 12/02/2023 8 :35 EDT from Last 3 Months Results * HIV 1 RNA QUANTITATION (12/02/2023 8:35 EDT) HIV RNA Detection, Qual Undetected Undetected copies/mL 12/05/2023 13:31 EDT [facility] Blood VENOUS BLOOD / Unknown 12/02/2023 8:35 EDT 12/02/2023 16:41 EDT Narrative [facility] - 12/05/2023 13:31 EDT The quantification range of this assay is 20 IU/mL to 10,000,000 IU/mL. ??Testing was performed using the Loi HIV test ([employer] with the loi [id number] System. Provider Outr Resulting Lab CHEMISTRY & BLOOD GAS ORDERABLES Performing Organization Address City/[facility]/ZIP Co de Phone Number [facility] [address], [place] [id number] * HEMOGLOBIN S SCREEN (12/02/2023 8:35 EDT) Sickle Cell Prep Negative Negative 12/03/2023 12:03 EDT [facility] Blood VENOUS BLOOD / Unknown 12/02/2023 8:35 EDT 12/02/2023 22:07 EDT Provider Outr Resulting Lab HEMATOLOGY & PF4 ORDERABLES Performing Organization Address [facility]/ZIP Co de Phone Number [facility] [address] [place] [address] from Last 3 Months
--- OUTSIDE RECORDS SUMMARY | 2024-02-28 00:56 | XMS_ITS | Encounter Summary ---
Author Organization [facility] Address [address] [place] [address] Care Team Providers Care Research Electrician Name Role Phone Unavailable Primary Care Provider Unavailabl e Encounter Details Date Type Department Care Team (Late st Contact Info) Description 11/24/2019 Lab Requisition [facility] Pathology & Laboratory Medicine - [facility] [address] [place] [address] Outr Resulting Lab, Provider Social History Tobacco [...] Procedure Name Priority Date/Time Associated Diagnosis Comments DO NOT ORDER STANDALONE - BROAD COVID TEST Today 11/24/2019 9:18 EDT COVID-19 TESTING Routine 11/24/2019 9:18 EDT documented in this encounter Results * DO NOT ORDER STANDALONE - BROAD COVID TEST (11/24/2019 9:18 EDT) COVID-19 rt-PCR Result NEGATIVE Negative 11/25/2019 22:27 EDT [facility] Comment: 2019-novel Coronavirus (2019-nCoV) not detected by the qRT-PCR assay. Consider testing for other respiratory viruses or re-collecting for 2019-nCoV testing. Note: Optimum timing for peak viral levels during infections caused by 2019-nCoV have not been determined. Collection of multiple specimens from the same patient may be necessary to detect the virus. Limitations Positive results are indicative of active infection with SARS-CoV-2 but do not rule out bacterial infection or co-infection with other viruses. The agent detected may not be the definite cause of disease. In addition, detection of viral RNA may not indicate the presence of infectious virus or that SARS-CoV-2 is the causative agent for clinical symptoms. Negative results do not preclude SARS-CoV-2 infection and should not be used as the sole basis for patient management decisions. Negative results must be combined with clinical observations, patient history, and epidemiological information. False negative results may also occur if amplification inhibitors are present in the specimen or if inadequate numbers of organisms are present in the specimen. Optimum specimen types and timing for peak viral levels during infections caused by SARS-CoV-2 have not been fully determined. Collection of multiple specimens (types and time points) from the same patient may be necessary to detect the virus. The test was validated for use with upper respiratory specimens obtained via nasopharyngeal or oropharyngeal swabs in VTM, UTM, M4, M5, M6, saline, and MTM media. The performance of this test has not been established for other specimens. Specimens collected using other FDA recommended Specimen Collection Materials listed in the FDA COVID-19 [employer] communication (September 10, 2019) are processed with the caveat that they were not all validated for use with this test and the result must be interpreted in this context. Furthermore, a false negative results may occur if a specimen is improperly collected, transported or handled. If the virus mutates in the RT-PCR target region, SARS-CoV-2 may not be detected or may be detected less predictably. Inhibitors or other types of interference may produce a false negative result. An interference study evaluating the effect of common cold medications was not performed. This test is not FDA-cleared but its performance characteristics were established by our CLIA-certified, CAP-accredited, high complexity laboratory in accordance with CLIA regulations, [employer] [place] [employer] (CAP) guidelines (Sep 03, 2019), and FDA guidance (Aug 15, 2019). This test is only for use under the Food and Drug Administration's Emergency Use Authorization. Swab ENTIRE NASOPHARYNX / Unknown 11/24/2019 9:18 EDT 11/24/2019 16:29 EDT Provider Outr Resulting Lab MICROBIOLOGY - GENERAL ORDERABLES [facility] [place] * COVID-19 TESTING (11/24/2019 9:18 EDT) Pathologist [facility] COVID-19 rt-PCR Result NEGATIVE Negative 11/25/2019 23:32 T [facility] Comment: 2019-novel Coronavirus (2019-nCoV) not detected by the qRT-PCR assay. Consider testing for other respiratory viruses or re-collecting for 2019-nCoV testing. Note: Optimum timing for peak viral levels during infections caused by 2019-nCoV have not been determined. Collection of multiple specimens from the same patient may be necessary to detect the virus. Limitations Positive results are indicative of active infection with SARS-CoV-2 but do not rule out bacterial infection or co-infection with other viruses. The agent detected may not be the definite cause of disease. In addition, detection of viral RNA may not indicate the presence of infectious virus or that SARS-CoV-2 is the causative agent for clinical symptoms. Negative results do not preclude SARS-CoV-2 infection and should not be used as the sole basis for patient management decisions. Negative results must be combined with clinical observations, patient history, and epidemiological information. False negative results may also occur if amplification inhibitors are present in the specimen or if inadequate numbers of organisms are present in the specimen. Optimum specimen types and timing for peak viral levels during infections caused by SARS-CoV-2 have not been fully determined. Collection of multiple specimens (types and time points) from the same patient may be necessary to detect the virus. The test was validated for use with upper respiratory specimens obtained via nasopharyngeal or oropharyngeal swabs in VTM, UTM, M4, M5, M6, saline, and MTM media. The performance of this test has not been established for other specimens. Specimens collected using other FDA recommended Specimen Collection Materials listed in the FDA COVID-19 [employer] communication (September 10, 2019) are processed with the caveat that they were not all validated for use with this test and the result must be interpreted in this context. Furthermore, a false negative results may occur if a specimen is improperly collected, transported or handled. If the virus mutates in the RT-PCR target region, SARS-CoV-2 may not be detected or may be detected less predictably. Inhibitors or other types of interference may produce a false negative result. An interference study evaluating the effect of common cold medications was not performed. This test is not FDA-cleared but its performance characteristics were established by our CLIA-certified, CAP-accredited, high complexity laboratory in accordance with CLIA regulations, [employer] [place] [employer] (CAP) guidelines (Sep 03, 2019), and FDA guidance (Aug 15, 2019). This test is only for use under the Food and Drug Administration's Emergency Use Authorization. Performing Lab [facility] 11/25/2019 23:32 EDT [facility] Swab ENTIRE NASOPHARYNX / Unknown 11/24/2019 9:18 EDT 11/24/2019 16:29 EDT Provider Outr Resulting Lab MICROBIOLOGY - GENERAL ORDERABLES [facility] [address] [place] [address] [facility] [place] documented in this encounter Visit Diagnoses Not on filedocumented in this encounter
--- OUTSIDE RECORDS SUMMARY | 2024-02-28 00:56 | XMS_ITS | Encounter Summary ---
Author Organization [facility] [place] [address] Care Team Providers Care Welding Tester Name Role Phone Mario Briones MD, Nish Primary Care Provider [phone] Encounter Details Date Type Department Care Team (Late st Contact Info) Description 06/19/2023 12:05 AM EST Ancillary [place] [address] Mejia Bowden, DIRECTIONAL SURVEY DRAFTER [address] [place] [address] Social History Tobacco Use Types Packs/Day Years [...] 11:00 AM EDT Office Visit [place] [address] Johnson Luther MD [facility] [place] [address] documented as of this encounter Procedures Procedure Name Priority Date/Time Associated Diagnosis Comments FILM LIBRARY STORAGE ONLY MR SHOULDER Routine 06/19/2023 12:05 AM EST documented in this encounter Results * Film Library- Storage Only MR Shoulder (06/19/2023 12:05 AM EST) Narrative [facility] - 11/20/2023 10:55 AM EDT This exam is auto-finalizing. It's purpose is for storage only. Mejia Bowden APRN IMG FILM LIBRARY O RDERABLES [place], [place] documented in this encounter Visit Diagnoses Not on filedocumented in this encounter Care Teams Welding Tester Relationship Specialty Start Date End Date Nish Martin [place] [address] PCP - General 05/09/10 06/30/23 documented as of this encounter
--- OUTSIDE RECORDS SUMMARY | 2024-02-28 00:56 | XMS_ITS | Encounter Summary ---
[facility] [place] [address] Care Team Providers Care Director Selection And Administration Name Role Phone Mejia Bowden APRN Primary Care Provider [phone] Encounter Details Date Type Department Care Team (Latest Contact Info) Description 01/10/2024 Travel Social History Tobacco Use Types Packs/Day [...] 11:00 AM EDT Office [place] [address] Johnson Luther MD [facility] [place] [address] documented as of this encounter Visit Diagnoses Not on filedocumented in this encounter Care Teams Director Selection And Administration Relationship Specialty Start Date End Date Mejia Bowden APRN [address] [place], [place] [id number] PCP - General Family Medicine 07/01/23 documented as of this encounter
--- OUTSIDE RECORDS SUMMARY | 2024-02-28 00:56 | XMS_ITS | Encounter Summary ---
Author Organization [facility] [place] [address] Care Team Providers Care Sheet Metal Engineer Name Role Phone Mario Briones MD, Nish Primary Care Provider Encounter Details Date Type Department Care Team (Late st Contact Info) Description 05/24/2023 Ancillary Procedure [place] [address] Gualberto Mcbride MD [facility] [place] [address] Social History Tobacco Use Types Packs/Day Years [...] 11:00 AM EDT Office [place] [phone] Johnson Luther MD [facility] [place] [address] documented as of this encounter Procedures Procedure Name Priority Date/Time Associated Diagnosis Comments FILM LIBRARY STORAGE ONLY DX SHOULDER Routine 05/24/2023 12:00 AM EST documented in this encounter Results * Film Library- Storage Only DX Shoulder (05/24/2023 12:00 AM EST) Narrative [facility] - 06/25/2023 7:26 PM EST This exam is auto-finalizing. It's purpose is for storage only. Gualberto Mcbride MD IMG FILM LIBRARY ORD ERABLES [facility] [place], [place] documented in this encounter Visit Diagnoses Not on filedocumented in this encounter Care Teams Sheet Metal Engineer Relationship Specialty Start Date End Date Nish Martin MD [address] [place] [id number] PCP - General 05/09/10 06/30/23 documented as of this encounter
--- NOTE | 2024-02-28 07:30 | DI.MRI_ITS ---
Exam(s) MR THORACIC SPINE WO EXAM: MR THORACIC SPINE WO CLINICAL HISTORY: Continuing pain/thoracic,m54.6. TECHNIQUE: Multiplanar multisequence MRI of the Thoracic spine was performed. COMPARISON: No exams were available for comparison FINDINGS: Bones: The vertebral body heights are well maintained. Alignment is satisfactory. The marrow signal characteristics are unremarkable. Cord: The thoracic cord is normal size and signal intensity. No intrinsic cord lesion is present. Soft tissues: Normal. T1-2: No disc herniation or bulge is identified. T2-3: No disc herniation or bulge is identified. T3-4: No disc herniation or bulge is identified. T4-5: No disc herniation or bulge is identified. T5-6: No disc herniation or bulge is identified. T6-7: No disc herniation or bulge is identified. T7-8: No disc herniation or bulge is identified. T8-9: No disc herniation or bulge is identified. T9-10: No disc herniation or bulge is identified. T10-11:No disc herniation or bulge is identified. T11-12: No disc herniation or bulge is identified. T12-L1: No disc herniations or bulges are present. IMPRESSION: Normal MRI examination of the thoracic spine. DATA REPOSITORY:
== END 2024-02-28 00:55 ==
LOC: DI 00:35
PROVIDERS: PCP Nurse Practitioner Family; Visit Provider Nurse Practitioner Family
DX: M54.6 Pain in thoracic spine (principal)
CPT/HCPCS: 72146

== ENCOUNTER 2024-04-20 01:33 | Outpatient (CLI) | payer BC, SELFPAY ==
--- NOTE | 2024-04-20 08:45 | DI.MRI_ITS ---
Exam(s) MR UPPER EXTREMITY LT WO EXAM: MR UPPER EXTREMITY LT WO CLINICAL HISTORY: Left scapula pain with deformity,thoracic pain,scapulothoracic bursitis, TECHNIQUE: Multiplanar multisequence MRI was performed without intravenous contrast. COMPARISON: CR XR SHOULDER LT COMPLETE 2+V from 05/24/2023 MR MR UPPER JOINT LT WO from 06/19/2023 MR MR THORACIC SPINE WO from 02/28/2024 FINDINGS: BONES/JOINTS: No fracture or contusion pattern. No bone lesions identified. MUSCULOTENDINOUS STRUCTURES: There is very mild hyperintense signal on the T2 weighted images seen in the latissimus dorsi muscle adjacent to the inferior angle of the scapula. No focal fluid collectio n is seen to suggest abscess. No muscular fatty atrophy. SOFT TISSUES: Unremarkable. OTHER FINDINGS: None. IMPRESSION: 1. No evidence of an occult fracture or osseous lesion. 2. Nonspecific mild intramuscular edema in the latissimus dorsi muscle adjacent to the inferior angle of the scapula. DATA REPOSITORY:
== END 2024-04-20 01:53 ==
LOC: DI 01:33
PROVIDERS: PCP Nurse Practitioner Family; Visit Provider Nurse Practitioner Family
DX: M75.52 Bursitis of left shoulder (principal); M54.6 Pain in thoracic spine
CPT/HCPCS: 73218